=== PATIENT | male | born 1985 | race Caucasian/White ===

== ENCOUNTER 2019-04-09 01:46 | Emergency (ER) | payer OTHER ==
[~2019-04-09] VITALS: Ht 195.6 cm; Wt 99.8 kg
[2019-04-09] MEDS ORDERED: ONDANSETRON PF 4 MG/2 ML VIAL. ONE (02:10)
[2019-04-09] MEDS ORDERED: ONDANSETRON ODT 4 MG TAB.RAPDIS. PO ONE (02:15)
[2019-04-09] MEDS ORDERED: UNABLE MC (02:22)
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
[2019-04-09] MEDS ORDERED: LIDOCAINE 1%/EPI 1:100,000 20 ML VIAL. ONE (02:48)
[2019-04-09] MEDS ORDERED: LIDOCAINE 1%/EPI 1:100,000 20 ML VIAL. INJ ONE (03:00)
[2019-04-09] MEDS ORDERED: ONDANSETRON PF 4 MG/2 ML VIAL. IV ONE (03:00)
[2019-04-09] MEDS ORDERED: MORPHINE SULFATE 2 MG/ML VIAL. ONE (03:16)
[2019-04-09 03:30] VITALS: BP 146/78
[2019-04-09] MEDS ORDERED: MORPHINE SULFATE 2 MG/ML VIAL. IV ONE (03:30)
[2019-04-09] MEDS ORDERED: TRAM50TA PO (03:47)
[2019-04-09] MEDS ORDERED: ONDA4TAB7 PO (03:47)
--- NOTE | 2019-04-09 03:49 | PHYS DOC ---
Past Medical History Past Medical History: Other Additional Past Medical Histor: BILAT LE CELLULITIS,CHRONIC BACK PAIN Past Surgical History: Other Additional Past Surgical Histo: HERNIA, BACK Alcohol Use: Occasionally Drug Use: None Laceration Repair Lac Repair Indication: [] Procedure: The patient was placed in the appropriate position and anesthesia around the [LAC WAS/WERE] [ANESTHESIA]. The area was then [CLEANSED/DEBRIDED]. The laceration was [LAC CLOSURE]. [ADDITIONAL LACS] The wound area was then dressed with [WOUND COVERING]. Total repaired wound length: [TOTAL REPAIR LENGTH]. Other Items: [OTHER ITEMS] The patient tolerated the procedure [TOLERATED]. Complications: [COMPLICATIONS]. Adult General Chief Complaint Chief Complaint: LACERATION/AVULSION HPI HPI Patient is a 34 year old [f__sex] who presents with [] Review of Systems Review of Systems Constitutional: Denies fever or chills [] Eyes: Denies change in visual acuity, redness, or eye pain [] HENT: Denies nasal congestion or sore throat [] Respiratory: Denies cough or shortness of breath [] Cardiovascular: No additional information not addressed in HPI [] GI: Denies abdominal pain, nausea, vomiting, bloody stools or diarrhea [] : Denies dysuria or hematuria [] Musculoskeletal: Denies back pain or joint pain [] Integument: Denies rash or skin lesions [] Neurologic: Denies headache, focal weakness or sensory changes [] Endocrine: Denies polyuria or polydipsia [] All other systems were reviewed and found to be within normal limits, except as documented in this note. Current Medications Current Medications Current Medications Medications (Trade) Dose Ordered Sig/Enrique Start Time Stop Time Status Last Admin Dose Admin Lidocaine/ Epinephrine (LIDOCAINE 1%-EPI 1:100,000 Multi-Dose) 20 ml STK-MED ONCE 04/09/19 02:48 04/09/19 02:48 DC Morphine Sulfate (Morphine Sulfate) 2 mg STK-MED ONCE 04/09/19 03:16 04/09/19 03:17 DC Ondansetron HCl (Zofran Odt) 4 mg 1X ONCE 04/09/19 02:15 04/09/19 02:23 DC Ondansetron HCl (Zofran) 4 mg 1X ONCE 04/09/19 03:00 04/09/19 03:01 DC 04/09/19 03:25 4 MG Allergies Allergies Allergies Coded Allergies Type Severity Reaction Last Updated Verified No Known Drug Allergies 04/09/19 No Physical Exam Physical Exam Constitutional: Well developed, well nourished, no acute distress, non-toxic appearance. [] HENT: Normocephalic, atraumatic, bilateral external ears normal, oropharynx moist, no oral exudates, nose normal. [] Eyes: PERRLA, EOMI, conjunctiva normal, no discharge. [] Neck: Normal range of motion, no tenderness, supple, no stridor. [] Cardiovascular:Heart rate regular rhythm, no murmur [] Lungs & Thorax: Bilateral breath sounds clear to auscultation [] Abdomen: Bowel sounds normal, soft, no tenderness, no masses, no pulsatile masses. [] Skin: Warm, dry, no erythema, no rash. [] Back: No tenderness, no CVA tenderness. [] Extremities: No tenderness, no cyanosis, no clubbing, ROM intact, no edema. [] Neurologic: Alert and oriented X 3, normal motor function, normal sensory function, no focal deficits noted. [] Psychologic: Affect normal, judgement normal, mood normal. [] Current Patient Data Vital Signs Vital Signs Date Time Temp Pulse Resp B/P (MAP) Pulse Ox O2 Delivery O2 Flow Rate FiO2 04/09/19 03:25 20 97 Room Air 04/09/19 01:55 98.0 78 153/92 (112) 98.0 EKG EKG [] Radiology/Procedures Radiology/Procedures [] Course & Med Decision Making Course & Med Decision Making Pertinent Labs and Imaging studies reviewed. (See chart for details) [] Dragon Disclaimer Dragon Disclaimer This electronic medical record was generated, in whole or in part, using a voice recognition dictation system. Departure Departure Impression: Primary Impression: Head injury Additional Impressions: Nausea Laceration of head Disposition: HOME, SELF-CARE Condition: STABLE Patient Instructions: Concussion and Brain Injury, [id number], Head Injury, Adult, [id number], Laceration Care, Adult, [id number] Additional Instructions: CT head without acute process See head injury instructions Take medications as prescribed for pain/nauseas Return to the ER with complaints of altered mental status, fever, worsening nausea/vomiting See wound care instructinos Britton Lovingetron Hcl (ZOFRAN) 4 Mg Tablet 1 TAB PO PRN Q6-8HRS, #12 TAB Prov: PAIGE VILLA MD 04/09/19 Tramadol Hcl (TRAMADOL HCL) 50 Mg Tablet 50 MG PO Q6HRS PRN for PAIN for 4 Days, #16 TAB Prov: PAIGE VILLA MD 04/09/19 Problem Qualifiers Primary Impression: Head injury Encounter type: initial encounter Qualified Codes: S09.90XA - Unspecified injury of head, initial encounter Additional Impressions: Laceration of head Encounter type: initial encounter Location of open wound of head: other part of head Foreign body presence: without foreign body Qualified Codes: S01.81XA - Laceration without foreign body of other part of head, initial encounter PAIGE VILLA MD Apr 09, 2019 03:49
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
== END 2019-04-09 04:03 | disposition home or self-care (01) ==
LOC: ER 01:46
DX: S01.81XA Laceration without foreign body of other part of head, initial encounter (principal); R11.0 Nausea; G89.29 Other chronic pain; W26.8XXA Contact with other sharp object(s), not elsewhere classified, initial encounter; Y93.89 Activity, other specified; Y92.89 Other specified places as the place of occurrence of the external cause; Y99.8 Other external cause status
CPT/HCPCS: 12014; 70450; 96374; 96375; 99285; J2270; J2405; J3490